=== PATIENT | female | born 1965 | race Caucasian/White ===

== ENCOUNTER 2017-04-04 21:46 | Emergency (ER) | payer OTHER ==
[~2017-04-04] VITALS: Ht 162.6 cm; Wt 58.5 kg
[~2017-04-04 21:46] MED LIST: ALLEGRA180 MG PO
--- NOTE | 2017-04-04 22:31 | ED GENERAL ADULT ---
History of Present Illness General Chief Complaint: General Adult Stated Complaint: PER PT HIGH BP Source: patient Exam Limitations: no limitations Vital Signs & Intake/Output Vital Signs & Intake/Output Vital Signs Date Time Temp Pulse Resp B/P B/P Pulse O2 O2 Flow FiO2 Mean Ox Delivery Rate 04/05 0010 98.2 89 18 167/89 98 Room Air 04/04 2216 97.3 92 18 182/106 97 Room Air ED Intake and Output 04/05 0000 04/04 1200 Intake Total 0 Output Total Balance 0 Intake, Oral 0 Patient 129 lb Weight Weight Reported by Patient Measurement Method Allergies Coded Allergies: NO KNOWN ALLERGIES (05/17/14) Reconcile Medications Fexofenadine Hydrochloride (Marva) 180 MG TAB 1 TAB PO DAILY CONGESTION ( Reported) Triage Note: PT REPORTS TO ED FOR EVALUATION OF HIGH BLOOD PRESSURE. SHE WAS PRESCRIBED AN ANTI-HYPERTENSIVE 3 DAYS AGO HOWEVER HAS NOT TAKEN THE MEDICATIONS AND NOW HER BP IS 106 DIASTOLIC. Triage Nurses Notes Reviewed? yes Onset: Gradual Duration: hour(s): Timing: recent history Injury Environment: home Severity: moderate Modifying Factors: Improves With: rest. Associated Symptoms: "I felt a little dizzy" HPI: 51 yo woman recently diagnosed with hypertension presents with bp of 180's/100's. She notes, "My doctor told me I had high blood pressure... She gave me a prescription.... I didn't want to start it yet... I checked my blood pressure tonight and it was in the 180's/100's.... I called the pharmacist and he told me to come in." She notes mild lightheadedness, but no chest pain, shortness of breath, dyspnea. She is otherwise well. Past History Travel History Traveled to [place] past 21 day No Medical History Any Pertinent Medical History? see below for history Cardiovascular: hypertension Surgical History Surgical History: none Psychosocial History What is your primary language Sudanese Tobacco Use: Never used Family History Comment: father w/ cva Hx Contributory? Yes Review of Systems Review of Systems Constitutional: Reports: no symptoms. EENTM: Reports: no symptoms. Respiratory: Reports: no symptoms. Cardiovascular: Reports: no symptoms. GI: Reports: no symptoms. Genitourinary: Reports: no symptoms. Musculoskeletal: Reports: no symptoms. Skin: Reports: no symptoms. Neurological/Psychological: Reports: no symptoms. Hematologic/Endocrine: Reports: no symptoms. Immunologic/Allergic: Reports: no symptoms. All Other Systems: Reviewed and Negative Physical Exam Physical Exam General Appearance: well developed/nourished, no apparent distress, anxious Head: atraumatic, normal appearance Eyes: Bilateral: normal appearance. Ears, Nose, Throat: normal pharynx, normal ENT inspection Neck: normal inspection, supple, full range of motion Respiratory: normal breath sounds, chest non-tender, no respiratory distress, quiet respiration, lungs clear Cardiovascular: regular rate/rhythm Gastrointestinal: normal bowel sounds, soft, non-tender, no organomegaly Back: normal inspection, normal range of motion Extremities: normal inspection Neurologic/Psych: no motor/sensory deficits, awake, alert, oriented x 3 Skin: intact, normal color, warm/dry Core Measures ACS in differential dx? No CVA/TIA Diagnosis: No Severe Sepsis Present: No Septic Shock Present: No Progress Differential Diagnoses I considered the following diagnoses in my evaluation of the patient: high blood pressure vs other. Plan of Care: Orders Procedure Date/time Status TROPONIN LEVEL 04/04 2231 Complete COMPREHENSIVE METABOLIC PANEL 04/04 2231 Complete CBC WITHOUT DIFFERENTIAL 04/04 2231 Complete EKG 04/04 2231 Active Laboratory Tests 04/04/17 2301: Anion Gap 11, Estimated GFR > 60, BUN/Creatinine Ratio 20.0, Glucose 107 H, Calcium 9.1, Total Bilirubin 0.4, AST 26, ALT 48, Alkaline Phosphatase 70, Troponin I < 0.01, Total Protein 7.2, Albumin 4.3, Globulin 2.9, Albumin/ Globulin Ratio 1.5, CBC w Diff NO MAN DIFF REQ, RBC 4.46, MCV 88.3, MCH 29.0, RDW 14.3, MPV 6.4 L, Gran % 73.2, Lymphocytes % 18.1 L, Monocytes % 5.8, Eosinophils % 2.0, Basophils % 0.9, Absolute Granulocytes 9.5 H, Absolute Lymphocytes 2.3, Absolute Monocytes 0.7 H, Absolute Eosinophils 0.3, Absolute Basophils 0.1, PUBS MCHC 32.8 L Diagnostic Imaging: Viewed by Me: Radiology Read. Discussed w/RAD: Radiology Read. CXR Impression: no acute abnormality, no infiltrates, normal size heart, normal mediastinum Initial ED EKG: normal axis, normal intervals, normal p-waves, normal QRS complex, normal sinus rhythm Comments: PATIENT: LYNDON BEARD PRESENT AGE: 51 PATIENT ACCOUNT NO: [id number] : 66 LOCATION: [facility] ORDERING PHYSICIAN: ALEN DAMIAN MD SERVICE DATE: 04/04/17 EXAM TYPE: RAD - XRY-PORTABLE CHEST XRAY EXAMINATION: XR PORTABLE CHEST CLINICAL INFORMATION: Chest discomfort COMPARISON: None TECHNIQUE: Portable frontal view of the chest was obtained. FINDINGS: The lungs are well expanded. There is no focal consolidation, edema, or effusion. No pneumothorax. The cardiomediastinal silhouette is within normal limits. No acute osseous abnormality. IMPRESSION: No acute pulmonary findings. DICTATED BY: HIWOT FUENTES MD DATE/TIME DICTATED:04/04/172300 HEALTHCARE ADMINISTRATIVE ASSISTANT:VIANNEY DATE/TIME TRANSCRIBED:04/04/172300 CONFIDENTIAL, DO NOT COPY WITHOUT APPROPRIATE AUTHORIZATION. <Electronically signed in Other Vendor System> SIGNED BY: HIWOT FUENTES MD 04/04 Departure Departure Disposition: HOME OR SELF CARE Condition: Stable Clinical Impression Primary Impression: Hypertension Referrals: KARSTEN CALHOUN MD (PCP/Family) Departure Forms: Customer Survey General Discharge Information Comments 04/04/17, 22:55... pt took her own triamterene/hctz in the ED. 04/05/17, 0:15... pt well appearing in ed, sbp 167... pt safe for discharge and will follow up with her pmd. Critical Care Note Critical Care Note Critical Care Time: non-applicable
--- NOTE | 2017-04-04 23:05 | RADIOLOGY REPORT ---
EXAMINATION: XR PORTABLE CHEST CLINICAL INFORMATION: Chest discomfort COMPARISON: None TECHNIQUE: Portable frontal view of the chest was obtained. FINDINGS: The lungs are well expanded. There is no focal consolidation, edema, or effusion. No pneumothorax. The cardiomediastinal silhouette is within normal limits. No acute osseous abnormality. IMPRESSION: No acute pulmonary findings.
[2017-04-04 23:12] LABS: ABSOLUTE BASOPHIL COUNT 0.1 /CUMM (0.0-0.2); ABSOLUTE EOSINOPHIL COUNT 0.3 /CUMM (0.0-0.7); ABSOLUTE GRANULOCYTE CT 9.5 /CUMM (1.4-6.5); ABSOLUTE LYMPH COUNT 2.3 /CUMM (1.2-3.4); ABSOLUTE MONOCYTE COUNT 0.7 /CUMM (0.10-0.60); BASOPHIL % 0.9 % (0.0-2.0); GRANULOCYTE % 73.2 % (42.2-75.2); HEMATOCRIT 39.4 % (37-47); MEAN CORPUSCULAR HGB CONC 32.8 G/DL (33.0-37.0); MEAN CORPUSCULAR VOLUME 88.3 FL (81.0-99.0); MEAN PLATELET VOLUME 6.4 FL (7.4-10.4); PLATELET COUNT 329 /CUMM (130-400); RBC DISTRIBUTION WIDTH 14.3 % (11.5-14.5); RED BLOOD CELL CT 4.46 /CUMM (4.20-5.40); WHITE BLOOD CELL COUNT 12.9 /CUMM (4.8-10.8)
[2017-04-05 00:10] VITALS: BP 167/89
== END 2017-04-05 00:24 ==
LOC: ERH 21:46
PROVIDERS: Pediatrics
DX: I10 Essential (primary) hypertension (principal)
CPT/HCPCS: 93005; 93010